=== PATIENT | male | born 1990 | race Caucasian/White ===

== ENCOUNTER 2016-03-08 17:24 | Emergency (ER) | payer OTHER ==
[~2016-03-08] VITALS: Ht 185.4 cm; Wt 113.0 kg
[2016-03-08 17:33] VITALS: BP 152/98; PULSE 93; RESP 16; TEMP 98.8; O2SAT 98
[2016-03-08 17:37] VITALS: BP 111/70; TEMP 98.8; O2SAT 100
[2016-03-08] MEDS ORDERED: BACT800T5 PO (19:52)
[2016-03-08] MEDS ORDERED: CLIN1CAP6 PO (19:52)
--- NOTE | 2016-03-08 19:56 | PD ---
HPI Chief Complaint: Lump, Cyst, Hernia Time Seen by Provider: 19:53 Travel History International Travel<30 days: No Contact w/Intl Traveler<30days: No Traveled to known affect area: No History of Present Illness HPI Patient is a 25-year-old male with chief complaint of painful bump on buttock. Present since yesterday. Denies trauma or injury. No drainage or discharge. No similar lesions in the past. He denies fever, chills, nausea, vomiting and lymphadenopathy. He denies diabetes or immunocompromised states. Denies history of MRSA. PFS Past Medical History Medical History: Denies Significant Hx Diminished Hearing: No Immunizations Current: Yes Tetanus Vaccination: < 5 Years Influenza Vaccination: Yes Past Surgical History Surgical History: No Previous Surgery Social History Alcohol Use: No Tobacco Use: No Substance Use: No Allergies-Medications (Allergen,Severity, Reaction): Coded Allergies: No Known Allergies (Unverified , 03/08/16) Reported Meds & Prescriptions Reported Meds & Active Scripts Active Clindamycin (Clindamycin HCl) 300 Mg Cap 300 Mg PO Q6H 10 Days Bactrim DS (Sulfamethoxazole-Trimethoprim) 800-160 Mg Tab 1 Tab PO BID Review of Systems General / Constitutional: No: Fever, Chills Skin: Positive Other (see the history of present illness) Hematologic/Lymphatic: No: Lymph Node Enlargement Physical Exam Narrative GENERAL: Well-developed and well-nourished adult male in no acute distress. SKIN: 3 cm erythematous area over the left upper back and gluteal cleft without pointing. There is central fluctuance present. No streaking or surrounding induration. This does not track towards the anus. Warm and dry. Good turgor without tenting. HEAD: Normocephalic and atraumatic. CARDIOVASCULAR: Regular rate and rhythm without murmurs, rubs, clicks or gallops. RESPIRATORY: Clear to auscultation bilaterally with symmetrical rise and fall, no distress or use of accessory muscles. MUSCULOSKELETAL: Patient freely moving all four extremities spontaneously. Extremities without clubbing, cyanosis, or edema. No obvious deformities. NEUROLOGIC: CN II-XII grossly intact. Awake and alert. Motor grossly within normal limits. Normal speech. PSYCHIATRIC: Appropriate mood and affect; insight and judgment normal. Data Data Last Documented VS Vital Signs Date Time Temp Pulse Resp B/P Pulse Ox O2 Delivery O2 Flow Rate FiO2 03/08/16 17:33 98.8 93 16 152/98 98 Orders Wound Culture And Gram Stain (03/08/16 19:51) Lidocai-Epi 1%-1:100,000 Inj (Xylocaine- (03/08/16 20:00) MDM Medical Decision Making Medical Screen Exam Complete: Yes Emergency Medical Condition: Yes Differential Diagnosis Pilonidal abscess versus abscess versus pilonidal cyst Narrative Course Patient is an otherwise healthy 25-year-old male who is afebrile, nontoxic and with a history and physical suggestive of a bilateral abscess. Incised and drained per attached procedure narrative. She was given Bactrim and clindamycin to cover for MRSA, skin fermin and anaerobes. Sent for culture.See discharge paperwork for further instructions. The plan was discussed with the patient who acknowledged their understanding and agreement. Reinforced the follow-up with primary care is critically important. Patient instructed on emergent conditions that should prompt return to ED. Procedures Procedure Narrative I&D LOCATION: Gluteal cleft SIZE: 3 cm ANESTHESIA: 1% lidocaine with epi PROCEDURE: The abscess was prepped with Betadine and sterilely draped. The abscess was infiltrated with 1.5 cc of above anesthetic. Incision was made with a #11 blade with length of 1.5 cm and depth of 8 mm. Expressed purulent and bloody material, approximately 6 mL. The wound was copiously irrigated and loculations were broken up. The wound was left open and covered with a sterile dressing. Packing was performed with half-inch iodoform. The patient was advised to keep the dressing clean and dry. Patient tolerated the procedure well. Diagnosis Primary Impression: Pilonidal abscess Patient Instructions: Abscess Incision and Drainage (ED), General Instructions , Pilonidal Cyst (ED) Additional Instructions: Keep area clean, dry, and covered with dressing/bandage Apply warm compresses daily to help with drainage Warm water Epsom salt soaks will help promote drainage Wound will continue to drain which is normal Take Tylenol or ibuprofen for pain Take medications as directed Follow-up with PCP in 2 days or return here for wound check, call laboratory for wound culture results Return to the ED for any acute worsening of symptoms including worsening swelling, spreading redness, fever, chills, nausea and vomiting Med/Other Pt SpecificInfo: Prescription(s) given Scripts Clindamycin 300 Mg Xeu888 Mg PO Q6H 10 Days Prov:Keon Pennington MD 03/08/16 Sulfamethoxazole-Trimethoprim (Bactrim DS)800-160 Mg Tab1 Tab PO BID #20 TAB Prov:Keon Pennington MD 03/08/16 Disposition: 01 DISCHARGE HOME Condition: Stable Tavares Aldrich III Mar 08, 2016 19:55
[2016-03-08] MEDS ORDERED: LIDOCAINE 1%/EPINEPHrine 1:100,000 SOLN 20 ML VIAL INFIL ONE (20:00)
== END 2016-03-08 20:59 | disposition home or self-care (01) ==
LOC: PHEFT 17:24
DX: L05.01 Pilonidal cyst with abscess (principal); B96.89 Other specified bacterial agents as the cause of diseases classified elsewhere
CPT/HCPCS: 10061; 87070; 87185; 87205

== ENCOUNTER 2016-03-11 10:09 | Emergency (ER) | payer OTHER ==
[~2016-03-11] VITALS: Ht 185.4 cm; Wt 115.4 kg
[~2016-03-11 10:09] MED LIST: BACT800T5 PO; CLIN1CAP6 PO
[2016-03-11 10:16] VITALS: BP 148/87; PULSE 85; RESP 16; TEMP 98.8; O2SAT 98
--- NOTE | 2016-03-11 11:13 | PD ---
HPI Chief Complaint: Wound/Suture/Staple Re-Check Time Seen by Provider: 10:29 Travel History International Travel<30 days: No Contact w/Intl Traveler<30days: No Traveled to known affect area: No History of Present Illness HPI 24-year-old man seen for pilonidal abscess on March 08, I&D performed with packing placed. Discharged with clindamycin and Bactrim antibiotics. Patient with significant improvement of symptoms. Here for packing removal. History Past Medical History Medical History: Denies Significant Hx Past Surgical History Surgical History: No Previous Surgery Social History Alcohol Use: No Tobacco Use: No (never) Allergies-Medications (Allergen,Severity, Reaction): Coded Allergies: No Known Allergies (Unverified , 03/11/16) Reported Meds & Prescriptions Reported Meds & Active Scripts Active Clindamycin (Clindamycin HCl) 300 Mg Cap 300 Mg PO Q6H 10 Days Bactrim DS (Sulfamethoxazole-Trimethoprim) 800-160 Mg Tab 1 Tab PO BID Review of Systems Except as stated in HPI: all other systems reviewed are Neg Physical Exam Narrative Gen.: Well-appearing 25-year-old man, no acute distress RECTAL: Patient has a draining pilonidal cyst, packing in place, no surrounding erythema or redness. No significant tenderness. Packing removed. Data Data Last Documented VS Vital Signs Date Time Temp Pulse Resp B/P Pulse Ox O2 Delivery O2 Flow Rate FiO2 03/11/16 10:16 98.8 85 16 148/87 98 MDM Medical Decision Making Medical Screen Exam Complete: Yes Emergency Medical Condition: Yes Differential Diagnosis Pilonidal abscess, cyst, other Narrative Course Medical decision-making 25 yo male, says post I&D of pilonidal abscess. Improving well. On antibiotics. Culture shows heavy growth of mixed anaerobes including gram- positive cocci in Fusobacterium species. Recommend continue antibiotics. Diagnosis Primary Impression: Pilonidal abscess Additional Instructions: Continue antibiotics as prescribed. Return to the emergency department if you have any worsening pain, redness, swelling, or any other new or worsening symptoms. Med/Other Pt SpecificInfo: No Change to Meds Disposition: 01 DISCHARGE HOME Condition: Stable Mike Gillespie MD Mar 11, 2016 11:13
== END 2016-03-11 11:20 | disposition home or self-care (01) ==
LOC: PHED 10:09
DX: Z48.00 Encounter for change or removal of nonsurgical wound dressing (principal)
CPT/HCPCS: 99281